=== PATIENT | male | born 1970 | race Caucasian/White ===

== ENCOUNTER → 2016-11-12 | Outpatient (CLI) | payer BC ==
--- NOTE | 2016-11-13 12:15 | DI ---
RIGHT WRIST, 11/12/2016 10:59 AM: Clinical History: Right wrist pain. Previous Exam: None at this facility. 3 views are submitted. There is no acute soft tissue, osseous, or joint abnormality. Joint space narr owing with sclerosis is noted in the capitolunate in the lunohamate joints. Reading: Degenerative arthritic changes are noted between the lunate bone and the capitate and hamate bones.
--- NOTE | 2016-11-13 12:16 | DI ---
LEFT ELBOW, 11/12/2016 10:59 AM: Clinical History: Left elbow pain. Previous Exam: None at this facility. 3 views are submitted. There is no acute soft tissue, osseous, or joint abnormality. Reading: Normal left elbow exam.
== END ==
LOC: ORTHO 11:05
PROVIDERS: ATTEND Orthopaedic Surgery
DX: M25.531 Pain in right wrist (principal); M25.522 Pain in left elbow; M19.031 Primary osteoarthritis, right wrist; G56.82 Other specified mononeuropathies of left upper limb
CPT/HCPCS: 73080; 73110